=== PATIENT | female | born 1950 | race Two or more races ===

== ENCOUNTER 2022-07-21 10:32 | Outpatient (CLI) | payer OTHER | END 2022-07-21 10:38 | disposition home or self-care (01) | LOC: MAMO-SONO 10:32 | PROVIDERS: ATTEND Internal Medicine | DX: Z12.31 Encounter for screening mammogram for malignant neoplasm of breast (principal); N63.0 Unspecified lump in unspecified breast; R10.9 Unspecified abdominal pain; R10.84 Generalized abdominal pain ==

== ENCOUNTER 2022-07-21 13:34 | Outpatient (CLI) | payer OTHER | END 2022-07-21 13:35 | disposition home or self-care (01) | LOC: NUCLEAR 13:34 | PROVIDERS: ATTEND Internal Medicine | DX: M81.0 Age-related osteoporosis without current pathological fracture (principal) ==

== ENCOUNTER 2024-02-08 13:49 | Outpatient (CLI) | payer OTHER | END 2024-02-08 13:59 | disposition home or self-care (01) | LOC: SONOGRAMA 13:49 | PROVIDERS: ATTEND Family Medicine | DX: E04.2 Nontoxic multinodular goiter (principal) ==

== ENCOUNTER 2024-06-04 16:39 | Outpatient (CLI) | payer OTHER ==
[2024-06-04 17:08] LABS: PH,URINE 6.5 (5.0-8.0); URINE APPEARANCE Clear; URINE BILIRRUBIN Negative (NEGATIVE); URINE BLOOD Negative; URINE COLOR Yellow; URINE GLUCOSE Negative (NEGATIVE); URINE KETONE Negative (NEGATIVE); URINE LEUKOCYTE Trace; URINE NITRATE Negative; URINE PROTEIN Negative (NEGATIVE); URINE UROBILINOGEN 0.2 E.U./dl
[2024-06-04 17:10] LABS: HEMATOCRIT 34.3 % (36.0-45.00); HEMOGLOBIN 11.8 g/dL (12.0-15.00); MEAN CELL VOLUME 84.7 fL (80.00-100.00); MEAN CORPUSCULAR HEMOGLOBIN 29.2 pg (27.00-32.0); MEAN CORPUSCULAR HGB CONC 34.5 g/dl (32.0-36.0); PLATELET COUNT 239 K/uL (150-450); RED BLOOD COUNT 4.04 M/uL (4.00-6.00)
[2024-06-04 17:12] LABS: URINE BACTERIA 36.5 uL (0.0-1933); URINE EPITHELIAL CELLS 8.3 uL (0.0-38.8); URINE WBC 6.7 uL (0.0-23.2)
[2024-06-04 18:09] LABS: ALBUMIN 3.8 gm/dL (3.4-5.0); BILIRUBIN TOTAL 0.42 mg/dL (0.3-1.2); CALCIUM 9.5 mg/dL (8.5-10.1); CHOL HDL RATIO 2.6 (0-5.0); CREATININE SERUM 0.85 mg/dL (0.55-1.02); GFR 65.56; GLOBULINA 3.8 G/DL (2.4-3.5); POTASSIUM 4.21 mEq/L (3.5-5.1); TOTAL PROTEIN 7.6 gm/dL (6.4-8.2)
[2024-06-04 18:14] LABS: TSH 0.286 uIU/mL (0.358-3.74)
== END 2024-06-04 16:49 | disposition home or self-care (01) ==
LOC: LAB 16:39
PROVIDERS: ATTEND Internal Medicine
DX: I11.9 Hypertensive heart disease without heart failure (principal); L02.31 Cutaneous abscess of buttock; E03.9 Hypothyroidism, unspecified; Z90.89 Acquired absence of other organs; D64.9 Anemia, unspecified; E11.9 Type 2 diabetes mellitus without complications; N39.0 Urinary tract infection, site not specified; E03.8 Other specified hypothyroidism; E78.00 Pure hypercholesterolemia, unspecified; R19.5 Other fecal abnormalities; E55.9 Vitamin D deficiency, unspecified

== ENCOUNTER 2024-06-11 17:02 | Outpatient (CLI) | payer OTHER ==
[2024-06-11 17:37] LABS: ob NEGATIVE (NEGATIVE)
== END 2024-06-11 17:13 | disposition home or self-care (01) ==
LOC: LAB 17:02
PROVIDERS: ATTEND Internal Medicine
DX: D64.9 Anemia, unspecified (principal); E11.9 Type 2 diabetes mellitus without complications; E78.00 Pure hypercholesterolemia, unspecified; N39.0 Urinary tract infection, site not specified; E03.8 Other specified hypothyroidism; N18.31 Chronic kidney disease, stage 3a; Z12.11 Encounter for screening for malignant neoplasm of colon; E55.9 Vitamin D deficiency, unspecified

== ENCOUNTER 2025-02-23 13:22 | Outpatient (CLI) | payer OTHER | END 2025-02-23 13:51 | disposition home or self-care (01) | LOC: MAMO-SONO 13:22 | PROVIDERS: ATTEND Internal Medicine | DX: N64.4 Mastodynia (principal); R92.8 Other abnormal and inconclusive findings on diagnostic imaging of breast; Z12.31 Encounter for screening mammogram for malignant neoplasm of breast ==

== ENCOUNTER 2025-03-05 13:06 | Outpatient (CLI) | payer OTHER | END 2025-03-05 13:20 | disposition home or self-care (01) | LOC: SONOGRAMA 13:06 | PROVIDERS: ATTEND Student in an Organized Health Care Education/Training Program | DX: N84.0 Polyp of corpus uteri (principal) ==

== ENCOUNTER 2025-03-09 12:03 | Outpatient (CLI) | payer OTHER | END 2025-03-09 12:12 | disposition home or self-care (01) | LOC: RAD 12:03 | DX: M25.511 Pain in right shoulder (principal) ==

== ENCOUNTER 2025-03-23 14:50 | Outpatient (CLI) | payer OTHER | END 2025-03-23 14:51 | disposition home or self-care (01) | LOC: MRI 14:50 | PROVIDERS: ATTEND Anesthesiology | DX: M25.511 Pain in right shoulder (principal) | CPT/HCPCS: 73221 ==